=== PATIENT | male | born 1965 | race Caucasian/White ===

== ENCOUNTER 2016-04-06 17:14 | Inpatient (IN) | payer OTHER ==
[~2016-04-06] VITALS: Ht 190.5 cm; Wt 244.0 kg
[2016-04-06] MEDS ORDERED: SODIUM CHLORIDE 0.9% 1,000 ML ONE (22:18)
[2016-04-06] MEDS ORDERED: VANCOMYCIN 2,500 MG in SODIUM CHLORIDE 0.9% 500 ML IV ONE (22:20)
[2016-04-06] MEDS ORDERED: ONDANSETRON 4 MG VIAL ONE (23:11)
[2016-04-07] MEDS ORDERED: PIPER/TAZO 3.375 GM PYXIS ONE (00:22)
[2016-04-07] MEDS ORDERED: SODIUM CHLORIDE 0.9% 100 ML IV ONE (00:25)
[2016-04-07 01:15] VITALS: BP_SYST 180; RESP 18; TEMP 98.4; Ht 190.5 cm; Wt 244.0 kg
[2016-04-07] MEDS ORDERED: PHARMACY TO DOSE ZOSYN IV SCH (01:40)
[2016-04-07] MEDS ORDERED: SALINE FLUSH 10 ML FLUSH PRN (01:40)
[2016-04-07] MEDS ORDERED: PHARMACY TO DOSE VANCOMYCIN IV SCH (01:40)
[2016-04-07] MEDS: SODIUM CHLORIDE 0.9% FLUSH BAG 500 ML IV SCH (06:13)
[2016-04-07] MEDS: PIPERACIL/TAZO 3.375GM/50ML 50 ML IV SCH ×3 (06:14→18:39)
[2016-04-07] MEDS: VANCOMYCIN 2,000 MG in SODIUM CHLORIDE 0.9% 500 ML IV SCH ×3 (07:11→23:31)
[2016-04-07] MEDS: SALINE FLUSH 10 ML FLUSH SCH ×2 (08:00→20:25)
[2016-04-07 08:13] VITALS: BP_SYST 144; RESP 22; TEMP 97.8
[2016-04-07 11:42] VITALS: BP_SYST 144; RESP 20; TEMP 98.1
[2016-04-07 15:08] VITALS: BP_SYST 140; RESP 20; TEMP 98.1
[2016-04-07 20:13] VITALS: BP_SYST 134; RESP 18; TEMP 97.5
[2016-04-07] MEDS: CEFAZOLIN 1,000 MG in DEXTROSE 5% 50 ML IV SCH (20:25)
[2016-04-07] MEDS: ALLOPURINOL 100 MG TAB PO SCH (21:58)
[2016-04-07] MEDS: LISINOPRIL 5 MG TAB PO SCH (21:59)
[2016-04-07 23:23] VITALS: BP_SYST 142; RESP 20; TEMP 96.7
[2016-04-08] VITALS (7 sets, daily range): BP systolic 96–154; RESP 16–24; TEMP 95.9–97.8
[2016-04-08] MEDS: CEFAZOLIN 1,000 MG in DEXTROSE 5% 50 ML IV SCH ×4 (02:33→23:31)
[2016-04-08] MEDS ORDERED: ACETAMINOPHEN 500 MG TAB PO ONE (05:35)
[2016-04-08] MEDS: VANCOMYCIN 2,000 MG in SODIUM CHLORIDE 0.9% 500 ML IV SCH (06:31)
[2016-04-08] MEDS: SODIUM CHLORIDE 0.9% FLUSH BAG 500 ML IV SCH (06:32)
[2016-04-08] MEDS: SALINE FLUSH 10 ML FLUSH SCH ×2 (08:59→20:35)
[2016-04-08] MEDS: Ibuprofen 600 MG TAB PO PRN ×2 (09:57→20:38)
[2016-04-08] MEDS: VANCOMYCIN 1,750 MG in SODIUM CHLORIDE 0.9% 500 ML IV SCH (17:52)
[2016-04-08] MEDS: LISINOPRIL 5 MG TAB PO SCH (20:36)
[2016-04-08] MEDS: ALLOPURINOL 100 MG TAB PO SCH (20:36)
[2016-04-09] MEDS: VANCOMYCIN 1,750 MG in SODIUM CHLORIDE 0.9% 500 ML IV SCH ×3 (00:21→21:16)
[2016-04-09 03:01] VITALS: BP_SYST 106; RESP 16; TEMP 96.1
[2016-04-09] MEDS: Ibuprofen 600 MG TAB PO PRN ×2 (05:57→21:21)
[2016-04-09] MEDS: SODIUM CHLORIDE 0.9% FLUSH BAG 500 ML IV SCH (05:58)
[2016-04-09 09:18] VITALS: BP_SYST 128; RESP 16
[2016-04-09] MEDS: CEFAZOLIN 1,000 MG in DEXTROSE 5% 50 ML IV SCH ×3 (09:22→23:23)
[2016-04-09] MEDS: SALINE FLUSH 10 ML FLUSH SCH ×2 (09:22→21:19)
[2016-04-09] MEDS ORDERED: PREDNISONE 20 MG TAB PO SCH (09:25)
[2016-04-09 12:15] VITALS: BP_SYST 142; RESP 17; TEMP 96.5
[2016-04-09 14:50] VITALS: BP_SYST 144; RESP 18; TEMP 97.1
[2016-04-09] MEDS ORDERED: FAMOTIDINE 20 MG INJ IV ONE (15:05)
[2016-04-09] MEDS ORDERED: PHARMACY TO DOSE XX SCH (15:05)
[2016-04-09] MEDS ORDERED: BUMETANIDE 1 MG/4 ML VIAL IV ONE (15:05)
[2016-04-09] MEDS ORDERED: BUMETANIDE 1 MG TAB PO SCH (17:00)
[2016-04-09] MEDS: ENOXAPARIN 60 MG/0.6 ML SYR SUBQ SCH (18:03)
[2016-04-09 20:17] VITALS: BP_SYST 118; RESP 20; TEMP 96.4
[2016-04-09] MEDS: LISINOPRIL 5 MG TAB PO SCH (21:18)
[2016-04-09] MEDS: ALLOPURINOL 100 MG TAB PO SCH (21:18)
[2016-04-10 00:10] VITALS: BP_SYST 138; RESP 20; TEMP 96
[2016-04-10 05:00] VITALS: BP_SYST 110; RESP 20; TEMP 97.9
[2016-04-10] MEDS: SODIUM CHLORIDE 0.9% FLUSH BAG 500 ML IV SCH (05:14)
[2016-04-10] MEDS ORDERED: MISSING DOSE XX ONE (07:55)
[2016-04-10] MEDS: SALINE FLUSH 10 ML FLUSH SCH ×2 (08:00→21:08)
[2016-04-10] MEDS: CEFAZOLIN 1,000 MG in DEXTROSE 5% 50 ML IV SCH ×2 (08:00→17:12)
[2016-04-10] MEDS ORDERED: BUMETANIDE 1 MG/4 ML VIAL IV SCH (09:00)
[2016-04-10 09:08] VITALS: BP_SYST 138; RESP 16; TEMP 95.9
[2016-04-10] MEDS: VANCOMYCIN 1,750 MG in SODIUM CHLORIDE 0.9% 500 ML IV SCH ×2 (09:21→21:08)
[2016-04-10] MEDS: Ibuprofen 600 MG TAB PO PRN (09:22)
[2016-04-10 11:33] VITALS: BP_SYST 138; RESP 18; TEMP 96.4
[2016-04-10] MEDS ORDERED: KCL CR 20 MEQ TAB PO ONE (12:20)
[2016-04-10 16:23] VITALS: BP_SYST 140; RESP 18; TEMP 96.8
[2016-04-10] MEDS: BUMETANIDE 1 MG/4 ML VIAL IV SCH (17:13)
[2016-04-10] MEDS: ENOXAPARIN 60 MG/0.6 ML SYR SUBQ SCH (17:13)
[2016-04-10 19:29] VITALS: BP_SYST 134; RESP 18; TEMP 96
[2016-04-10] MEDS: ALLOPURINOL 100 MG TAB PO SCH (21:08)
[2016-04-10] MEDS: LISINOPRIL 5 MG TAB PO SCH (21:08)
[2016-04-11] VITALS (7 sets, daily range): BP systolic 102–140; RESP 16–20; TEMP 96–96.8
[2016-04-11] MEDS: CEFAZOLIN 1,000 MG in DEXTROSE 5% 50 ML IV SCH ×4 (01:04→23:11)
[2016-04-11] MEDS ORDERED: MISSING DOSE XX ONE (03:50)
[2016-04-11] MEDS: Ibuprofen 600 MG TAB PO PRN (04:04)
[2016-04-11] MEDS: SODIUM CHLORIDE 0.9% FLUSH BAG 500 ML IV SCH (06:08)
[2016-04-11] MEDS: SALINE FLUSH 10 ML FLUSH SCH ×2 (08:26→20:10)
[2016-04-11] MEDS: VANCOMYCIN 1,750 MG in SODIUM CHLORIDE 0.9% 500 ML IV SCH ×2 (08:27→20:09)
[2016-04-11] MEDS: BUMETANIDE 1 MG/4 ML VIAL IV SCH ×2 (08:27→16:12)
[2016-04-11] MEDS: ENOXAPARIN 60 MG/0.6 ML SYR SUBQ SCH (17:01)
[2016-04-11] MEDS: ALLOPURINOL 100 MG TAB PO SCH (20:09)
[2016-04-11] MEDS: LISINOPRIL 5 MG TAB PO SCH (20:09)
[2016-04-12 05:40] VITALS: BP_SYST 136; RESP 18; TEMP 96.2
[2016-04-12] MEDS: SODIUM CHLORIDE 0.9% FLUSH BAG 500 ML IV SCH (06:23)
[2016-04-12 07:44] VITALS: BP_SYST 130; RESP 18; TEMP 97.1
[2016-04-12] MEDS: CEFAZOLIN 1,000 MG in DEXTROSE 5% 50 ML IV SCH ×3 (09:54→23:40)
[2016-04-12] MEDS: VANCOMYCIN 1,750 MG in SODIUM CHLORIDE 0.9% 500 ML IV SCH ×2 (09:54→20:02)
[2016-04-12] MEDS: SALINE FLUSH 10 ML FLUSH SCH ×2 (09:54→20:01)
[2016-04-12] MEDS: BUMETANIDE 1 MG/4 ML VIAL IV SCH ×2 (09:54→16:35)
[2016-04-12 11:10] VITALS: BP_SYST 136; RESP 20; TEMP 96.8
[2016-04-12] MEDS: ENOXAPARIN 60 MG/0.6 ML SYR SUBQ SCH (17:31)
[2016-04-12 17:50] VITALS: BP_SYST 138; RESP 20
[2016-04-12] MEDS: ALLOPURINOL 100 MG TAB PO SCH (20:01)
[2016-04-12] MEDS: LISINOPRIL 5 MG TAB PO SCH (20:01)
[2016-04-12 20:14] VITALS: BP_SYST 132; RESP 18; TEMP 97.2
[2016-04-12 23:41] VITALS: BP_SYST 128; RESP 20; TEMP 96.7
[2016-04-13 04:00] VITALS: BP_SYST 124; RESP 20; TEMP 97.4
[2016-04-13] MEDS: SODIUM CHLORIDE 0.9% FLUSH BAG 500 ML IV SCH (06:39)
[2016-04-13 08:42] VITALS: BP_SYST 134; RESP 16; TEMP 96.7
[2016-04-13] MEDS: BUMETANIDE 1 MG/4 ML VIAL IV SCH (09:00)
[2016-04-13] MEDS: CEFAZOLIN 1,000 MG in DEXTROSE 5% 50 ML IV SCH (09:35)
[2016-04-13] MEDS: SALINE FLUSH 10 ML FLUSH SCH (09:35)
[2016-04-13] MEDS: VANCOMYCIN 1,750 MG in SODIUM CHLORIDE 0.9% 500 ML IV SCH (09:35)
[2016-04-13 11:02] VITALS: BP_SYST 134; RESP 16; TEMP 96.7
== END 2016-04-13 13:52 | disposition home or self-care (01) | DRG 602 ==
LOC: ENRESERVTM → ENRESERVDT → ER 17:14 → ENPENDDIS 23:29 → EMR 23:29 → 3NT 04-07 01:12
PROVIDERS: ADMIT Family Medicine; ATTEND Family Medicine
DX: L03.311 Cellulitis of abdominal wall (principal); I50.33 Acute on chronic diastolic (congestive) heart failure; Z68.44 Body mass index [BMI] 60.0-69.9, adult; E66.01 Morbid (severe) obesity due to excess calories; L40.9 Psoriasis, unspecified; I11.0 Hypertensive heart disease with heart failure; J44.9 Chronic obstructive pulmonary disease, unspecified; Z86.718 Personal history of other venous thrombosis and embolism
CPT/HCPCS: 36415; 71010; 71020; 80048; 80053; 80202; 81001; 82553; 83605; 83690; 84439; 84443; 84484; 85025; 87040; 93005; 96361; 96365; 96366; 99222; 99232; 99233